=== PATIENT | female | born 1975 | race Caucasian/White ===

== ENCOUNTER 2022-11-22 11:05 | Outpatient (CLI) | payer OTHER, SELFPAY ==
[2022-11-22 13:07] LABS: Chloride* 106 mmol/L (96-114); Potassium* 4.4 mmol/L (3.6-5.1); Sodium* 139 mmol/L (135-149)
[2022-11-22 13:10] LABS: Blood Urea Nitrogen* 9 mg/dL (5-24); Carbon Dioxide* 27 mmol/L (20-32); Creatinine* 0.6 mg/dL (0.5-1.5); Estimated Glomerular Filt Rate 110 ml/min
[2022-11-22 13:11] LABS: Calcium* 9.1 mg/dL (8.4-10.6); Glucose* 98 mg/dL (60-115)
== END 2022-11-22 11:06 | disposition home or self-care (01) ==
LOC: LONREF 11:07
PROVIDERS: PCP Family Medicine; Visit Provider Family Medicine
DX: I10 Essential (primary) hypertension (principal)
CPT/HCPCS: 80048

== ENCOUNTER 2024-01-09 18:47 | Outpatient (CLI) | payer BC, SELFPAY ==
--- OUTSIDE RECORDS SUMMARY | 2024-01-09 18:56 | XMS_ITS | Clinical Summary ---
Author Name Unknown Organization [employer] [facility] Address [place], [place] [address] Care Team Providers Care Cyber Operator Name Role Phone Pcp, No Primary Care Provider Unavailabl e Allergies Active Allergy Reactions Criticality Noted Date Comments Latex Rash 07/10/2012 Medications Medication Sig Dispensed Refills Start Date End Date Status ALPRAZolam (XANAX) 0.5 mg tabletIndications:Ge neralized anxiety disorder Take 1/2 to 1 tablet once daily prn acute anxiety 30 tablet 5 09/07/2017 Active traMADoL (ULTRAM) 50 mg tabletIndications:Di splacement of lumbar intervertebral disc without myelopathy TAKE ONE TABLET BY MOUTH EVERY FOUR HOURS NEEDED FOR PAIN 120 Tablet 0 02/05/2021 Active chlorthalidone (HYGROTON) 25 mg tabletIndications:HT N (hypertension) Take 1 Tablet (25 mg) by mouth once daily. 90 Tablet 3 10/26/2021 Active Benazepril HCl 40 mg tabletIndications:HT N (hypertension) Take 1 Tablet (40 mg) by mouth once daily. 90 Tablet 3 10/26/2021 Active amLODIPine (NORVASC) 10 mg tabletIndications:HT N (hypertension) Take 1 Tablet (10 mg) by mouth once daily. 90 Tablet 3 10/26/2021 Active cyclobenzaprine (FLEXERIL) 10 mg tabletIndications:Mu scle spasm,Neck pain, acute,Cervical nerve root impingement Take 1 Tablet (10 mg) by mouth at bedtime if needed for Muscle Spasm. 20 Tablet 0 10/26/2021 Active dextroamphetamine-am phetamine (ADDERALL XR) 15 mg Extended-Release capsuleIndications:A ttention deficit hyperactivity disorder (ADHD), combined type TAKE TWO CAPSULES BY MOUTH DAILY 60 Capsule 0 02/02/2022 Active HYDROcodone-acetamin ophen (NORCO) 5-325 mg per tabletIndications:Judi mbar facet arthropathy,Displace ment of lumbar intervertebral disc without myelopathy,DDD (degenerative disc disease), lumbar TAKE ONE TABLET BY MOUTH THREE TIMES DAILY NEEDED. MAX ACETAMINOPHEN DOSE: 4000MG IN 24 HOURS 60 Tablet 0 02/02/2022 Active Hospital, Clinic, or Other Facility Administered Medication Ordered Dose Route Frequency Start Date End Date Status levonorgestrel intrauterine device (MIRENA) 1 DeviceIndications: contraception 1 Device IU Q 5 YEARS 10/07/2020 Active Active Problems Problem Noted Date Diagnosed Date KIKO I (cervical intraepithelial neoplasia I) 02/2020 Overview: 04/04/11 ASCUS/HPV+ 05/30/11 Moran:KIKO I 11/04/11 LSIL 03/14/12 Moran:negative 03/05/15 NIL/HPV negative 10/05/20 NIL/HPV negative Plan: Routine screening Controlled substance agreement signed 04/19/2017 Overview: Signed 06-30-14 Bing Mc, CHANGE BOOTH ATTENDANT-BC, INVESTIGATOR CLAIMS/psychiatry. Pain medication agreement 06/13/2016 Overview: Prescriber: Dr. Ronnie Brown, [facility] ALEENA Booker Ok to fill at same amount/dose/frequency in my absence. Controlled substance agreement: 06/13/16 IRONWORKER APPRENTICE SHOP query on 12/16/20 Last UDS on 07/15/19 Depression, major, recurrent, in complete remiss ion 05/13/2016 Hypertrophy of breast 12/03/2015 Left central L5-S1 disk herniation 02/13/2013 L5-S1 DDD lumbar 02/13/2013 Patellofemoral arthritis or right knee 3 Adjustment disorder with mixed anxiety and depre ssed mood 02/11/2013 Lumbar facet arthropathy 12/12/2012 Encounter for long-term (current) use of other m edications 10/19/2011 Overview: Benzodiazepine. No contract. No abuse. May refill monthly--no early refills. Posttraumatic stress disorder 06/29/2011 Obesity, unspecified 10/20/2008 Generalized anxiety disorder 09/20/2007 Unspecified essential hypertension 05/24/2007 Resolved Problems Problem Noted Date Diagnosed Date Resolved Date MDD (major depressive disord er), recurrent episode, mild 07/25/2013 05/13/2016 Generalized anxiety disorder 10/28/2012 10/28/2012 Body mass index 36.0-36.9, adult 07/10/2012 06/24/2013 Morbid obesity BMI >35 with hypertension comorbid 07/10/2012 06/24/2013 IUD (intrauterine device) in place 10/30/2007 06/18/2012 Posttraumatic stress disorder 10/29/2007 09/06/2011 Major depressive disorder, r ecurrent episode, unspecified 09/20/2007 07/25/2013 Anxiety state, unspecified 08/23/2007 1 Immunizations Name Administration Dates Next Due AMB Influenza, IIV4 PF (=>6 mos Flulaval,Fluzone Fluarix)(Flu Clinic Only) 09/16/2019 DT (Age < 7 years) 06/20/2005 Influenza, IIV4 10/05/2020,09/20/2016 Influenza, IIV4 (=>6mos) MDV 08/23/2017 Tdap 04/04/2011 Family History Medical History Relation Name Comments Heart Disease Father Greg Bueno [place] age 42 Psychiatric illness Maternal Grandmother Chichi Kumar Other Mother Summer Garay pacer Psychiatric illness Mother Summer Garay Cancer Paternal Grandmother everyw here Heart Disease Paternal Uncle 1 stent plac ed at 42yr. Psychiatric illness Paternal Uncle 2 suic melody Cancer-breast No Family History Relation Name Status Comments Brother 1 [place] Spann Alive Brother 2 Ankur Zana Alive Daughter Bria Baumann Alive Father Greg Bueno Alive Maternal Grandfather Maternal Grandmother Chichi Kumar Alive Mother Summer Garay Alive Paternal Grandfather Paternal Grandmother Paternal Uncle 1 Paternal Uncle 2 Son Warren Baumann Alive Social History Tobacco Use Types Packs/Day Years Used Date Smoking Tobacco: Never Smokeless Tobacco: Never Tobacco Cessation:Counseling Given: Yes Alcohol Use Standard Drinks/Week Comments Yes 0 (1 standard drink = 0.6 oz pur e alcohol) 1x week- occ PHQ-2 Answer Date Recorded PHQ-2 TOTAL SCORE 2 10/05/2020 Social Connections Answer Date Recorded Frequency of Communication with Friends and Fami ly Not on file 11/11/2021 Financial Resource Strain Answer Date R ecorded Difficulty of Paying Living Expenses Not on file 11/11/2021 Difficulty of Paying Living Expenses Not on file 11/11/2021 Sex and Gender Information Value Date Recorded Sex Assigned at Not on file Gender Identity Not on file Sexual Orientation Not on file Obstetrics History Para Term AB IAB SAB Ectopic Multiple Livin g Live Births 3 2 Date Outcome GA Total Labor Labor/2nd/3rd Weight Sex Delivery Anes PTL Jolene A1 A5 Name Cl in Last Filed Vital Signs Vital Sign Reading Time Taken Comments Blood Pressure 135/84 12/15/2021 3:49 PM SURVEYOR'S ASSISTANT Pulse 111 12/15/2021 3:49 PM SURVEYOR'S ASSISTANT Temperature 36.7 ??C (98.1 ??F) 10/07/2020 7:03 AM CS T Respiratory Rate 18 04/28/2021 8:57 AM CDT Oxygen Saturation 98% 12/15/2021 3:49 PM SURVEYOR'S ASSISTANT Inhaled Oxygen Concentration - - Weight 89.8 kg (198 lb) 12/15/2021 3:49 PM SURVEYOR'S ASSISTANT Height 156 cm (5' 1.42) 10/26/2021 10:07 AM SURVEYOR'S ASSISTANT Body Mass Index 36.91 10/26/2021 10:07 AM SURVEYOR'S ASSISTANT Plan of Treatment Health Maintenance Due Date Last Done Comments COVID-19 vaccine series (#1) 1973 HIV for age 15-65 1988 Hepatitis C screening for age 18-79 1991 Tetanus booster 04/04/2021 04/04/2011 Mammogram for age 45-75 09/10/2021 09/10/20 20, 09/06/2017, 08/17/2015, Additional history exists Depression screening for age 12+ 10/07/2021 10/07/2020, 10/05/2020, 02/03/2020, Additional history exists Colonoscopy through age 75 03/14/2022 03/14/2012 BMI (ht and wt on same day) for age 18+ 10/26/2022 10/26/2021, 10/07/2020, 10/05/2020, Additional history exists Zoster (shingles) series for age 50+ (1 of 2) 2023 Influenza for age 50-64 07/21/2023 10/05/20 20, 09/16/2019, 08/23/2017, Additional history exists Pap test for age 21-65 10/05/2023 0, 10/05/2020, 03/05/2015, Additional history exists Lipids for age 45-75 10/26/2026 10/26/2021, 10/05/2020, 08/23/2017, Additional history exists Tdap Completed 04/04/2011 Pneumococcal series for age 6-64 Aged Out No longer eligible based on patient's age to complete this topic Care Teams Cyber Operator Relationship Specialty Start Date End Date Pcp, No . PCP - General 01/15/22
--- NOTE | 2024-01-09 19:00 | MM_ITS ---
Final Report Patient: IZABELA RICHEYVILLE Facility:?[facility] Patient ID:?[id number] Study:?XRay Breast Bilateral 3D W/CAD-01/09/2024 7:34:29 PM Ordering Physician:?Zi Lowe Final Report: BILATERAL SCREENING MAMMOGRAM WITH COMPUTER-AIDED DETECTION AND TOMOSYNTHESIS TECHNIQUE: CC and MLO views were obtained. These mammographic images have been obtained using full-field digital technique. These mammographic images were interpreted with the benefit of computer-aided detection. Breast Tomosynthesis was used in this interpretation. COMPARISON FILM: 08/17/15, 01/23/15, 03/18/13. FINDINGS: There are scattered areas of fibroglandular density. IMPRESSION: There is no radiographic evidence for malignancy. ASSESSMENT: BI-RADS Category 1: Negative RECOMMENDATION: Routine screening mammogram in 1 year. A lay language report of this examination will be provided to the patient. Henri Murray M.D. Diagnostic Radiologist [email or web address] DSM/sp R& Transcribed: 4:42 p.m. SP/Dictated by: Henri Murray MD @ 01/10/2024 9:53:00 AM (Electronic Signature)
== END 2024-01-09 18:48 | disposition home or self-care (01) ==
LOC: MAMMO 18:49
PROVIDERS: PCP Family Medicine; Visit Provider Family Medicine
DX: Z12.31 Encounter for screening mammogram for malignant neoplasm of breast (principal)
CPT/HCPCS: 77063; 77067

== ENCOUNTER 2024-01-10 15:34 | Outpatient (CLI) | payer BC, SELFPAY ==
--- OUTSIDE RECORDS SUMMARY | 2024-01-10 15:38 | XMS_ITS | Clinical Summary ---
Author Name Unknown Organization [employer] [facility] [employer] [facility] Address [place], [place] [address] Care Team Providers Care Employment Evaluator/Case Manager Name Role Phone Pcp, No Primary Care [...] neoplasia I) 02/2020 Overview: 04/04/11 ASCUS/HPV+ 05/30/11 Oley:KIKO I 11/04/11 LSIL 03/14/12 Oley:negative 03/05/15 NIL/HPV negative 10/05/20 NIL/HPV negative Plan: Routine screening Controlled substance agreement signed 04/19/2017 Overview: Signed 06-30-14 Bing Mc, WEB SOLUTIONS ARCHITECT-BC, POWERHOUSE ELECTRICIAN APPRENTICE/psychiatry. Pain medication agreement 06/13/2016 Overview: Prescriber: Dr. Ronnie Brown, [facility] ALEENA Booker Ok to fill at same amount/dose/frequency in my absence. Controlled substance agreement: 06/13/16 USER INTERFACE ENGINEER query on 12/16/20 Last UDS on 07/15/19 [...] Comments Blood Pressure 135/84 12/15/2021 3:49 PM CHAIN MAKER HAND Pulse 111 12/15/2021 3:49 PM CHAIN MAKER HAND Temperature 36.7 ??C (98.1 ??F) 10/07/2020 7:03 AM CS T Respiratory Rate 18 04/28/2021 8:57 AM CDT Oxygen Saturation 98% 12/15/2021 3:49 PM CHAIN MAKER HAND Inhaled Oxygen Concentration - - Weight 89.8 kg (198 lb) 12/15/2021 3:49 PM CHAIN MAKER HAND Height 156 cm (5' 1.42) 10/26/2021 10:07 AM CHAIN MAKER HAND Body Mass Index 36.91 10/26/2021 10:07 AM CHAIN MAKER HAND Plan of Treatment Health Maintenance Due Date [...] age to complete this topic Care Teams Employment Evaluator/Case Manager Relationship Specialty Start Date End Date Pcp, No . PCP - General 01/15/22
== END 2024-01-10 15:35 | disposition home or self-care (01) ==
PROVIDERS: PCP Family Medicine; Visit Provider Family Medicine
DX: N91.2 Amenorrhea, unspecified (principal); Z13.220 Encounter for screening for lipoid disorders; I10 Essential (primary) hypertension
CPT/HCPCS: 80048; 80061; 83001

== ENCOUNTER 2025-03-11 15:45 | Outpatient (CLI) | payer OTHER, SELFPAY | END 2025-03-11 15:46 | disposition home or self-care (01) | LOC: NFLDREF 03-13 22:12 | PROVIDERS: PCP Family Medicine; Referring Provider Family Medicine; Visit Provider Family Medicine | DX: N30.00 Acute cystitis without hematuria (principal); B96.20 Unspecified Escherichia coli [E. coli] as the cause of diseases classified elsewhere | CPT/HCPCS: 87086 ==